=== PATIENT | male | born 1960 | race Caucasian/White ===

== ENCOUNTER → 2017-06-15 | Day surgery (SDC) | payer OTHER ==
[~2017-06-15] MED LIST: Lactated Ringers 1,000 ML IV SCH; Propofol 200 MG/20 ML SDV IV ONE
--- NOTE | 2017-06-18 09:08 | OR ---
DATE OF OPERATION: 06/15/2017 PREOPERATIVE DIAGNOSIS: 1. SCREENING COLONOSCOPY. 2. FAMILY HISTORY OF COLON CARCINOMA. POSTOPERATIVE DIAGNOSIS: 1. SCREENING COLONOSCOPY. 2. FAMILY HISTORY OF COLON CARCINOMA. SURGEON: Hiro Puentes MD PROCEDURE: FULL-LENGTH COLONOSCOPY WITH SNARE POLYPECTOMY X1. ANESTHESIA: HYDRAULIC PRESS IN OPERATOR. COMPLICATIONS: None. SPECIMEN: Tubular adenoma, rectosigmoid junction. FINDINGS: 1. Full-length colonoscopy. 2. Tubular adenoma less than 1 cm at rectosigmoid junction. RECOMMENDATIONS: Followup colonoscopy in 5 years. INDICATIONS: The patient was seen by David Lambert. He has never had a prior colonoscopy and apparently he has a family history. Gurpreet sent him for procedure. DESCRIPTION OF PROCEDURE: The patient was prepped and draped and placed in the left lateral decubitus position. A lubricated Olympus colonoscope was inserted and advanced to the cecum without difficulty. Direct visualization of the ileocecal valve and appendiceal orifice was accomplished. The bowel prep was excellent. Upon withdrawal of the scope, the cecum, ascending, and transverse colons were completely benign. Throughout the entire descending and sigmoid colon, I could find no signs of polyps, mass, ulceration, or bleeding sites. No vascular abnormalities or signs of colitis. No significant diverticula. Near the rectosigmoid junction, the patient had a small tubular adenoma stalk, and right on the backside of the haustral folds, little challenging getting it into the snare, this removed and suctioned into polyp trap #1 without difficulty. The rest of the rectum was benign. Retroflexion showed no perianal lesions other than some hemorrhoidal tissue. Air was suctioned. Scope removed without complication. WALT/CLEO /[id number]
== END ==
LOC: CC.SDS 10:21
PROVIDERS: ATTEND Family Medicine
DX: Z12.11 Encounter for screening for malignant neoplasm of colon (principal); K63.5 Polyp of colon; I10 Essential (primary) hypertension; E78.5 Hyperlipidemia, unspecified; Z79.899 Other long term (current) drug therapy; Z80.0 Family history of malignant neoplasm of digestive organs
CPT/HCPCS: J2704

== ENCOUNTER 2023-06-22 10:51 | Day surgery (SDC) | payer BC ==
[2023-06-22] MEDS: Lactated Ringers 1,000 ML IV SCH (11:22)
[2023-06-22] MEDS ORDERED: Ketamine 200 MG/20 ML MDV ONE (11:36)
[2023-06-22] MEDS ORDERED: Propofol 200 MG/20 ML SDV ONE (11:36)
[2023-06-22] MEDS ORDERED: fentaNYL 50 MCG/ML SDV ONE (11:36)
== END 2023-06-22 13:00 | disposition home or self-care (01) ==
LOC: CC.SDS 10:51
PROVIDERS: ATTEND Family Medicine
DX: Z12.11 Encounter for screening for malignant neoplasm of colon (principal); K63.5 Polyp of colon; K57.30 Diverticulosis of large intestine without perforation or abscess without bleeding; I10 Essential (primary) hypertension; R73.03 Prediabetes; E78.5 Hyperlipidemia, unspecified; Z79.899 Other long term (current) drug therapy; Z86.010 Personal history of colon polyps
CPT/HCPCS: 00811; J2704; J3010; J3490; J7120